=== PATIENT | male | born 1975 | race Caucasian/White ===

== ENCOUNTER 2018-10-31 05:45 | Emergency (ER) | payer BC ==
[2018-10-31] MEDS ORDERED: METHYLPREDNISOLONE INJ 125 MG/2 ML SDV IV ONE (06:36)
[2018-10-31] MEDS ORDERED: DIPHENHYDRAMINE HCL 50 MG/ML VIAL IV ONE (06:36)
[2018-10-31] MEDS ORDERED: FAMOTIDINE INJ/PF 20 MG/2 ML SDV IV ONE (06:36)
--- NOTE | 2018-10-31 06:39 | ER Document Report ---
HPI - HPI Time Seen by Provider: 10/31/18 06:31 Pain Level: Denies Context: Patient is a 43-year-old male that comes to the emergency department for chief complaint of breaking up the hives everywhere. He states he woke up with scratching and itching and then noticed he had it on his abdomen, then it spread to his arms, back, and extremities. He denies difficulty swallowing or breathing, sore throat, wheezing, nausea or vomiting, abdominal pain. He denies history of the same. He takes no daily medications, denies any past medical history. Past Medical History - General Information source: Patient, Relative - Social History Smoking Status: Never Smoker Drug Abuse: None Lives with: Spouse/Significant other Family History: Reviewed & Not Pertinent - Medical History Medical History: Negative Surgical Hx: Negative - Immunizations Immunizations up to date: Yes Hx Diphtheria, Pertussis, Tetanus Vaccination: Yes Vertical Provider Document - CONSTITUTIONAL General Appearance: WD/WN, No Apparent Distress - INFECTION CONTROL TRAVEL OUTSIDE OF THE [place] IN LAST 30 DAYS: No - HEENT HEENT: Atraumatic, Normal ENT Exam - Patent airway, normal uvula, normal oral pharyngeal exam, normal ENT exam, Normocephalic - NECK Neck: Normal Inspection - RESPIRATORY Respiratory: Breath Sounds Normal, No Respiratory Distress. negative: Wheezing - CARDIOVASCULAR Cardiovascular: Regular Rate, Regular Rhythm - GI/ABDOMEN Gastrointestinal: Abdomen Soft, Abdomen Non-Tender. negative: Abdomen Tender - BACK Back: Normal Inspection - MUSCULOSKELETAL/EXTREMETIES Musculoskeletal/Extremeties: MAEW, FROM, Non-Tender - NEURO Level of Consciousness: Awake, Alert, Appropriate Motor/Sensory: No Motor Deficit, No Sensory Deficit - DERM Integumentary: Warm, Dry, Rash - Scattered urticaria noted over the extremities, back, and especially on the lower abdomen Course - Re-evaluation Re-evalutation: After IV Benadryl, Pepcid, Solu-Medrol patient reevaluated, hives have almost completely resolved. Patient has had no progression over the last several hours. Because of improvement, lack of anaphylactic symptoms, patient will be discharged with medications, instructions, return precautions. Discussed this in detail. They state understanding and agreement. Stable at time of discharge. - Vital Signs Vital signs: Temp Pulse Resp BP Pulse Ox 97.9 F 73 18 112/45 L 100 10/31/18 05:54 10/31/18 05:54 10/31/18 05:54 10/31/18 05:54 10/31/18 05:54 Discharge - Discharge Clinical Impression: Urticaria Condition: Stable Disposition: HOME, SELF-CARE Additional Instructions: Your evaluation is consistent with urticaria (hives), this appears to be a reaction to something you came in contact with although the source is not certain. Take prednisone as prescribed, take cetirizine as prescribed for the next week. Follow-up with primary care. Return if you worsen including spreading rash, difficulty swallowing or breathing, swelling of the tongue or face, vomiting, or any other concerning symptoms. Prescriptions: Cetirizine HCl [All Day Allergy] 10 mg PO DAILY #30 tablet Prednisone [Deltasone 10 mg Tablet] 10 mg PO ASDIR PRN #21 tablet PRN Reason:
[2018-10-31 08:06] VITALS: BP 114/74
== END 2018-10-31 07:55 | disposition home or self-care (01) ==
LOC: ER 05:45
DX: L50.9 Urticaria, unspecified (principal)
CPT/HCPCS: J1200; J2930; S0028